=== PATIENT | female | born 1995 | race Caucasian/White ===

== ENCOUNTER 2022-01-26 11:39 | Day surgery (SDC) | payer BC ==
[2022-01-26] MEDS ORDERED: Bupivacaine 0.25% 10 ML SDV ONE (11:46)
[2022-01-26] MEDS ORDERED: Lidocaine 1% with EPINEPHrine 1:100,000 20 ML MDV ONE (11:46)
[2022-01-26] MEDS ORDERED: Lidocaine 1%/Sod Bicarbonate in NS 8.4% 1 ML Syringe IDERM PRN (12:03)
[2022-01-26] MEDS ORDERED: Sodium Chloride 0.9% 10 ML Syringe FLUSH PRN (12:03)
[2022-01-26] MEDS ORDERED: Lactated Ringers 1,000 ML IV SCH (12:15)
[2022-01-26] MEDS ORDERED: Sodium Chloride 0.9% 10 ML Syringe FLUSH SCH (12:15)
[2022-01-26] MEDS ORDERED: Citric Acid/Sodium Citrate Solution 30 ML Cup PO ONE (12:30)
[2022-01-26] MEDS ORDERED: Rocuronium 50 MG/5 ML Vial ONE (13:09)
[2022-01-26] MEDS ORDERED: Ondansetron 4 MG/2 ML SDV ONE (13:09)
[2022-01-26] MEDS ORDERED: ceFAZolin 2 GM Vial ONE (13:09)
[2022-01-26] MEDS ORDERED: fentaNYL 100 MCG/2 ML SDV ONE ×2 (13:09→14:03)
[2022-01-26] MEDS ORDERED: Lidocaine 1% 2 ML ONE (13:09)
[2022-01-26] MEDS ORDERED: Propofol 200 MG/20 ML SDV ONE (13:09)
[2022-01-26] MEDS ORDERED: Phenylephrine HCl In 0.9% NaCl 1 MG/10 ML Vial ONE (13:30)
[2022-01-26] MEDS ORDERED: ePHEDrine 50 MG/ML SDV ONE (13:30)
[2022-01-26] MEDS ORDERED: Sugammadex Sodium 200 MG/2 ML VIAL ONE (13:46)
[2022-01-26] MEDS ORDERED: fentaNYL 100 MCG/2 ML SDV IVPUSH PRN (14:27)
[2022-01-26] MEDS ORDERED: Ondansetron 4 MG/2 ML SDV IVPUSH PRN (14:27)
[2022-01-26] MEDS ORDERED: Promethazine 25 MG/ML SDV IV PRN (14:54)
[2022-01-26] MEDS ORDERED: Promethazine 6.25 MG in Sodium Chloride 0.9% 50 ML IV PRN (15:26)
[2022-01-26] MEDS ORDERED: Acetaminophen/HYDROcodone 325-5 MG Tab PO PRN (15:30)
== END 2022-01-26 16:40 | disposition home or self-care (01) ==
LOC: JD.SDS 11:39
PROVIDERS: ATTEND Surgery
DX: O99.613 Diseases of the digestive system complicating pregnancy, third trimester (principal); K80.10 Calculus of gallbladder with chronic cholecystitis without obstruction; K21.9 Gastro-esophageal reflux disease without esophagitis; O99.343 Other mental disorders complicating pregnancy, third trimester; F41.9 Anxiety disorder, unspecified; F32.A Depression, unspecified; O99.513 Diseases of the respiratory system complicating pregnancy, third trimester; J30.9 Allergic rhinitis, unspecified; Z79.899 Other long term (current) drug therapy; Z3A.28 28 weeks gestation of pregnancy
CPT/HCPCS: 47562; 59025; A9270; J0690; J2405; J2704; J3010; J3490; J7120; 00790